=== PATIENT | male | born 1970 | race Caucasian/White ===

== ENCOUNTER 2017-04-30 18:54 | Emergency (ER) | payer OTHER ==
[~2017-04-30] VITALS: Ht 177.8 cm; Wt 85.5 kg
[2017-04-30 19:00] VITALS: Ht 177.8 cm; Wt 85.5 kg
[2017-04-30] MEDS ORDERED: SOD CHLORIDE 0.9% 1,000 ML IV STA (20:25)
[2017-04-30] MEDS ORDERED: KETOROLAC 15 MG INJ IV STA (20:25)
[2017-04-30] MEDS ORDERED: DIPHENHYDRAMINE 50 MG INJ IV ONE (20:30)
[2017-04-30 20:51] LABS: BASOPHILS % 0.5 % (0.0-2.0); EOSINOPHILS # 0.4 10^3/ul (0.0-0.5); EOSINOPHILS % 4.5 % (0.0-7.0); HEMATOCRIT 44.2 % (42.0-52.0); HEMOGLOBIN 15.5 g/dl (14.0-18.0); LYMPHOCYTES # 1.5 10^3/ul (0.8-2.9); LYMPHOCYTES % 17.3 % (15.0-51.0); MEAN CORPUSCULAR HEMOGLOBIN 31.3 pg (29.0-33.0); MEAN CORPUSCULAR HGB CONC 35.1 g/dl (32.0-37.0); MEAN CORPUSCULAR VOLUME 89.3 fl (82.0-101.0); MEAN PLATELET VOLUME 9.7 fl (7.4-10.4); MONOCYTE # 0.5 10^3/ul (0.3-0.9); MONOCYTES % 6.4 % (0.0-11.0); NEUTROPHILS % 70.9 % (39.0-77.0); PLATELET COUNT 270 10^3/UL (140-415); RED BLOOD COUNT 4.95 10^6/ul (4.70-6.10); RED CELL DISTRIBUTION WIDTH 11.7 % (11.5-14.5); WHITE BLOOD COUNT 8.4 10^3/ul (4.8-10.8)
--- NOTE | 2017-04-30 21:04 | RADRPT ---
PROCEDURE: Portable chest x-ray. CLINICAL INDICATION: 46-year-old man. Abdominal pain. TECHNIQUE: Portable AP view of the chest. COMPARISON: None. FINDINGS: Cardiomediastinal contours are normal. Lungs are clear.. Negative for pleural effusion or pneumothorax.. No acute bony abnormality. IMPRESSION: Negative for evidence of acute chest process. RPTAT: [facility]CTS Physician Lea Date Time Electronically viewed and signed by Rhea Ngo Physician on 04/30/2017 21:04 CS/
[2017-04-30 21:24] LABS: ALANINE AMINOTRANSFERASE 47 IU/L (13-69); ALBUMIN 4.6 g/dl (3.3-4.9); ALBUMIN/GLOBULIN RATIO 1.27; ALKALINE PHOSPHATASE 78 IU/L (42-121); ANION GAP 14 (8-16); ASPARTATE AMINO TRANSFERASE 31 IU/L (15-46); BILIRUBIN,INDIRECT 0.2 mg/dl (0-1.1); BILIRUBIN,TOTAL 0.2 mg/dl (0.2-1.3); BLOOD UREA NITROGEN 11 mg/dl (7-20); CALCIUM 9.9 mg/dl (8.4-10.2); CARBON DIOXIDE 28 mmol/L (21-31); CHLORIDE 102 mmol/L (97-110); CREATININE 1.19 mg/dl (0.61-1.24); GLUCOSE 103 mg/dl (70-220); POTASSIUM 3.8 mmol/L (3.5-5.1); SODIUM 140 mmol/L (135-144); TOTAL PROTEIN 8.2 g/dl (6.1-8.1)
[2017-04-30 21:36] LABS: TROPONIN-I < 0.012 ng/ml (0.00-0.12)
[2017-04-30] MEDS ORDERED: ALBU8.5H3 INH (21:38)
[2017-04-30] MEDS ORDERED: IBUP-1542 PO (21:38)
[2017-04-30] MEDS ORDERED: LORA10TA3 PO (21:38)
[2017-04-30 22:10] VITALS: BP 127/78; PULSE 78; RESP 20; TEMP 98.9
--- NOTE | 2017-04-30 23:07 | ERD ---
ER Documentation Chief Complaint Date/Time DATE: 04/30/17 TIME: 23:03 Chief Complaint chest pain x 5 days on and off, throat pain HPI 46-year-old man complains of 5 days of sharp chest pain with cough, nasal congestion, sore throat, itchy watery eyes, and episodic diarrhea. 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 He denies exertional chest pain, no calf or leg swelling, no vomiting, no fevers or chills. Patient denies changes in his voice. Patient denies headache or blurry vision. ROS All systems reviewed and are negative except as per history of present illness. Medications Home Meds Active Scripts Albuterol Sulfate* (Proair HFA*) 8.5 Gm Hfa.aer.ad, 2 PUFF INH Q6H Y for WHEEZING AND SOB, #1 INHALER Prov:SHREYA BROWN MD 04/30/17 Loratadine* (Loratadine*) 10 Mg Tablet, 10 MG PO DAILY for NASAL CONGESTION, # 15 TAB Prov:SHREYA BROWN MD 04/30/17 Ibuprofen* (Ibuprofen*) 600 Mg Tablet, 600 MG PO Q8 for PAIN AND/OR INFLAMMATION , #30 TAB Prov:SHREYA BROWN MD 04/30/17 Allergies Allergies: Coded Allergies: No Known Allergy (Unverified , 04/30/17) PMhx/Soc None Medical and Surgical Hx: pt denies Medical Hx, pt denies Surgical Hx History of Surgery: No Anesthesia Reaction: No Hx Neurological Disorder: No Hx Respiratory Disorders: Yes (BRONCHITIS 2011) Hx Cardiac Disorders: No Hx Psychiatric Problems: No Hx Miscellaneous Medical Probl: No Hx Alcohol Use: No Hx Substance Use: No Hx Tobacco Use: No Smoking Status: Never smoker FmHx Family History: No diabetes Physical Exam Vitals Vital Signs Date Time Temp Pulse Resp B/P Pulse Ox O2 Delivery O2 Flow Rate FiO2 04/30/17 22:10 98.9 78 20 127/78 98 Room Air 04/30/17 19:43 82 20 136/88 98 Room Air 04/30/17 19:00 99.2 90 20 140/74 98 Physical Exam GENERAL: Well-developed, well-nourished, well-hydrated, in no apparent distress , looks nontoxic in appearance HEENT: Positive nasal congestion, bilateral conjunctival injection, no cervical spine tenderness or step-off deformities, no goiter, no jaundice or icterus, extraocular movements intact without pain. No submandibular induration, and no pharyngeal erythema NEURO: Alert and oriented 3, cranial nerves II through XII intact bilaterally, pupils equal round reactive to light, no focal deficits or facial asymmetry, sensation intact distally Strength 5/5 in upper and lower extremities bilaterally CARDIAC: Regular rate and rhythm, no murmurs rubs or gallops LUNGS: Clear bilaterally no wheezing crackles or stridor ABDOMEN: Soft nontender, no guarding, no rigidity, no rebound, no psoas sign no obturator sign. Normoactive bowel sounds SKIN: Warm and dry to touch, no abrasions, contusions, or hematomas, no lacerations, no ecchymosis, no target lesions, and without ulcers EXTREMITIES: No clubbing cyanosis or edema, calves are bilaterally symmetrical, no Homans sign, no popliteal cord sign. Distal pulses equal and bilateral PSYCH: Normal affect without agitation or irritability Result Diagram: 04/30/17202904/30/17 2030 Results 24 hrs Laboratory Tests Test 04/30/17 20:30 White Blood Count 8.410^3/ul Red Blood Count 4.9510^6/ul Hemoglobin 15.5g/dl Hematocrit 44.2% Mean Corpuscular Volume 89.3fl Mean Corpuscular Hemoglobin 31.3pg Mean Corpuscular Hemoglobin Concent 35.1g/dl Red Cell Distribution Width 11.7% Platelet Count 26666^3/UL Mean Platelet Volume 9.7fl Neutrophils % 70.9% Lymphocytes % 17.3% Monocytes % 6.4% Eosinophils % 4.5% Basophils % 0.5% Nucleated Red Blood Cells % 0.0/100WBC Neutrophils # 6.010^3/ul Lymphocytes # 1.510^3/ul Monocytes # 0.510^3/ul Eosinophils # 0.410^3/ul Basophils # 0.010^3/ul Nucleated Red Blood Cells # 0.010^3/ul Sodium Level 140mmol/L Potassium Level 3.8mmol/L Chloride Level 102mmol/L Carbon Dioxide Level 28mmol/L Anion Gap 14 Blood Urea Nitrogen 11mg/dl Creatinine 1.19mg/dl Glucose Level 103mg/dl Calcium Level 9.9mg/dl Total Bilirubin 0.2mg/dl Direct Bilirubin 0.00mg/dl Indirect Bilirubin 0.2mg/dl Aspartate Amino Transf (AST/SGOT) 31IU/L Alanine Aminotransferase (ALT/SGPT) 47IU/L Alkaline Phosphatase 78IU/L Troponin I < 0.012ng/ml Total Protein 8.2g/dl Albumin 4.6g/dl Globulin 3.60g/dl Albumin/Globulin Ratio 1.27 Lipase 56U/L Current Medications Medications (Trade) Dose Ordered Sig/Jontahan Route PRN Reason Start Time Stop Time Status Last Admin Dose Admin Sodium Chloride (NS) 1,000 ml @ 1,000 mls/hr Q1H STAT IV 04/30/17 20:25 04/30/17 21:24 DC 04/30/17 20:43 Ketorolac Tromethamine (Toradol) 15 mg ONCE STAT IV 04/30/17 20:25 04/30/17 20:27 DC 04/30/17 20:36 Diphenhydramine HCl (Benadryl) 25 mg ONCE ONCE IV 04/30/17 20:30 04/30/17 20:31 DC 04/30/17 20:35 Procedures/MDM IV line was established patient was placed on casing in line feeder rhythm strip revealed a sinus rhythm at about 80 bpm with upright P and T waves. Patient was afebrile. EKG performed, read by me: 85 bpm, normal sinus rhythm, normal axis, no acute ST segment changes, narrow QRS complex, with good R-wave progression in precordial leads. One AP view of the chest performed, read by me reveals no acute infiltrates, normal mediastinum, sharp costophrenic and cardiac borders, no air under the diaphragm. Otherwise unremarkable chest x-ray. For his symptoms I administered Toradol 15 mg IV 1, 1 L normal saline intravenously and diphenhydramine 25 mg IV 1 with improvement in his symptoms. CBC and electrolytes are normal, liver function tests are normal, troponin was negative. Differential diagnoses considered, included but not limited to acute pericarditis, endocarditis, valley fever, acute coronary syndrome, pulmonary embolism, aortic dissection, abdominal aortic aneurysm, sepsis, stroke, meningitis, encephalitis, pneumonia, appendicitis, cholecystitis, bowel obstruction, pyelonephritis, nephrolithiasis, cystitis, as well as metabolic, hematologic, and electrolyte abnormalities. As well as abscess, cellulitis, fractures, and dislocations. Patient feels much better at this time, and vital signs are normal, symptoms have improved. I did give strict instructions to return to the ED if symptoms continue or worsen, patient will otherwise follow-up with primary care physician. Patient understood instructions and agreed to plan. Disclaimer: Inadvertent spelling and grammatical errors are likely due to EHR/ dictation software use and do not reflect on the overall quality of patient care. Also, please note that the electronic time recorded on this note does not necessarily reflect the actual time of the patient encounter. Departure Diagnosis: Primary Impression: Diarrhea Diarrhea type: unspecified type Qualified Code: R19.7 - Diarrhea, unspecified type Additional Impression: URI (upper respiratory infection) URI type: acute nasopharyngitis (common cold) Qualified Code: J00 - Acute nasopharyngitis Condition: Good Patient Instructions: Treating Diarrhea, Uri, Viral, No Abx (Adult) SHREYA BROWN MD Apr 30, 2017 23:07
== END 2017-04-30 22:10 | disposition home or self-care (01) ==
LOC: E/R 18:54
DX: R19.7 Diarrhea, unspecified (principal); J00 Acute nasopharyngitis [common cold]
CPT/HCPCS: 71010; 80053; 83690; 84484; 85025; 96374; 96375; J1200; J1885; J7030; Z7502; 93005